=== PATIENT | male | born 1970 | race Hispanic/Latino ===

== ENCOUNTER 2017-05-04 08:48 | Emergency (ER) | payer OTHER ==
[~2017-05-04] VITALS: Ht 167.6 cm; Wt 81.6 kg
[2017-05-04] MEDS ORDERED: ACETAMINOPHEN 325 MG TAB PO ONE (10:00)
[2017-05-04 10:02] VITALS: BP 140/88
== END 2017-05-04 09:55 | disposition home or self-care (01) ==
LOC: FSED 08:48
DX: M54.5 Low back pain (principal); K59.00 Constipation, unspecified; Z87.19 Personal history of other diseases of the digestive system
CPT/HCPCS: 99283